=== PATIENT | male | born 1935 | race Caucasian/White ===

== ENCOUNTER 2016-09-01 17:18 | Inpatient (IN) | payer OTHER ==
[2016-09-01] MEDS ORDERED: NS 1,000 ML IV ONE (17:56)
--- NOTE | 2016-09-01 17:58 | EDPHY ---
H & P Stated Complaint: Bloody urine w/ proastate CA HPI/ROS: HPI CHIEF COMPLAINT: Hematuria, painless HISTORY OF PRESENT ILLNESS: This patient very pleasant 81-year-old male significant past medical history for hyperlipidemia, prostate cancer, BPH, GERD , presents to the Emergency Room painless hematuria x2 days. Patient states around noon yesterday he developed blood in his urine did not really have any discomfort back pain or abdominal pain tells me that he had 2 more episodes of a large amount of blood with passage of blood clots. Again painless, does feel urinary urgency, and not a very steady stream. Tells me he has never had this before. Tells me that he used to be followed by a urologist for prostate CA but has not seen 1 in years. Denies a history of AAA, or being on blood thinners. Currently this time he has no complaints. Past Medical History: BPH, prostate CA, hyperlipidemia, GERD Past Surgical History: prostate surgery Social History: denies daily use drugs, alcohol, tobacco products Family History: Noncontributory ROS REVIEW OF SYSTEMS: A comprehensive 10 point review of systems is otherwise negative aside from elements mentioned in the history of present illness. Exam Constitutional triage nursing summary reviewed, vital signs reviewed, awake/ alert. Eyes normal conjunctivae and sclera, EOMI, PERRLA. HENT normal inspection, atraumatic, moist mucus membranes, no epistaxis, neck supple/ no meningismus, no raccoon eyes. Respiratory clear to auscultation bilaterally, normal breath sounds, no respiratory distress, no wheezing. Cardiovascular rate normal, regular rhythm, no murmur, no edema, distal pulses normal. Gastrointestinal soft, non-tender, no rebound, no guarding, normal bowel sounds, no distension, no pulsatile mass. Genitourinary no CVA tenderness. Musculoskeletal no midline vertebral tenderness, full range of motion, no calf swelling, no tenderness of extremities, no meningismus, good pulses, neurovascularly intact. Skin pink, warm, & dry, no rash, skin atraumatic. Neurologic awake, alert and oriented x 3, AAOx3, moves all 4 extremities equally, motor intact, sensory intact, CN II-XII intact, normal cerebellar, normal vision, normal speech. Psychiatric normal mood/affect. Heme/Lymph/Immune no lymphadenopathy. Differential Diagnosis: includes but is not limited to in a particular order, BPH causing painless hematuria, bladder mass, cystitis, UTI, renal mass, ruptured AAA Medical Decision Making: this patient had an IV established obtain blood work, urinalysis, coags, patient had a CT abdomen pelvis with IV contrast to rule out ruptured AAA or AAA, or bladder mass or renal mass. Re-evaluation: CT scan of the Abdomen pelvis with IV contrast The results of the study are shows bladder wall mass 3. 6 cm x 3 x 2 cm The study was read by Dr. Storey. I viewed the images myself on the PACS system. 2011: Spoke with Dr. Guillory with Urology on-call recommends 3 way catheter with irrigation, and admission the hospital for further evaluation of this bladder mass. He will consult. 2015: Spoke with Dr. Guillory with Urology on-call recommends admission [address] Leonardo catheter and he will consult. I have ordered through a Leonardo catheter reviewed the CT scan with the patient he understands remission for gross hematuria. Will be irrigated. He is hemodynamically stable no acute distress resting comfortably agrees with plan. 2139: Patient declined Leonardo catheter we did make 2 attempts however he is refusing another attempt. Tells me has to be consciously sedated to get a catheter placed. I explained that we should probably try 1 more time given he has a bladder possibly full blood however has declined he wants to be admitted upstairs he is urinating himself. Source: Patient - Personal History Current Tetanus/Diphtheria Vaccine: Unsure Current Tetanus Diphtheria and Acellular Pertussis (TDAP): Unsure - Medical/Surgical History Hx Asthma: No Hx Chronic Respiratory Disease: No Hx Diabetes: No Hx Cardiac Disease: No Hx Renal Disease: No Hx Cirrhosis: No Hx Alcoholism: No Hx HIV/AIDS: No Hx Splenectomy or Spleen Trauma: No Other PMH: GERD, prostate CA - Social History Smoking Status: Current some day smoker Constitutional: Initial Vital Signs Temperature (C) 36.7 C 09/01/16 17:20 Heart Rate 69 09/01/16 17:20 Respiratory Rate 16 09/01/16 17:20 Blood Pressure 153/93 H 09/01/16 17:20 O2 Sat (%) 89 L 09/01/16 17:20 O2 Delivery Mode Room Air O2 (L/minute) 2 Allergies/Adverse Reactions: wheat Allergy (Severe, Unverified 09/01/16 20:59) Home Medications: Medication Instructions Recorded Acetaminophen [Tylenol ES 500 mg 1,000 mg PO HS 09/01/16 (*)] Atorvastatin Calcium [Lipitor 40 40 mg PO DAILY 09/01/16 mg (*)] Esomeprazole Mag Trihydrate 40 mg PO DAILY 09/01/16 [Nexium] Medical Decision Making - Data Points Laboratory Results: Laboratory Results 09/01/16 17:48 09/01/16 17:48 09/01/16 09/01/16 17:48 17:27 WBC 9.14 10^3/uL (3.80-9.50) RBC 4.68 10^6/uL (4.40-6.38) Hgb 15.5 g/dL (13.7-17.5) Hct 45.2 % (40.0-51.0) MCV 96.6 fL (81.5-99.8) MCH 33.1 pg (27.9-34.1) MCHC 34.3 g/dL (32.4-36.7) RDW 13.1 % (11.5-15.2) Plt Count 268 10^3/uL (150-400) MPV 9.3 fL (8.7-11.7) Neut % (Auto) 61.7 % (39.3-74.2) Lymph % (Auto) 25.4 % (15.0-45.0) [place] % (Auto) 8.0 % (4.5-13.0) Eos % (Auto) 3.7 % (0.6-7.6) Baso % (Auto) 1.0 % (0.3-1.7) Nucleat RBC Rel Count 0.0 % (0.0-0.2) Absolute Neuts (auto) 5.64 10^3/uL (1.70-6.50) Absolute Lymphs (auto) 2.32 10^3/uL (1.00-3.00) Absolute Monos (auto) 0.73 10^3/uL (0.30-0.80) Absolute Eos (auto) 0.34 10^3/uL (0.03-0.40) Absolute Basos (auto) 0.09 10^3/uL (0.02-0.10) Absolute Nucleated RBC 0.00 10^3/uL (0-0.01) Immature Gran % 0.2 % (0.0-1.1) Immature Gran # 0.02 10^3/uL (0.00-0.10) PT 13.4 SEC (12.0-15.0) INR 1.03 (0.83-1.16) APTT 29.2 SEC (23.0-38.0) Sodium 143 mEq/L (134-144) Potassium 4.2 mEq/L (3.5-5.2) Chloride 102 mEq/L (97-110) Carbon Dioxide 30 mEq/l (22-31) Anion Gap 11 mEq/L (8-16) BUN 13 mg/dL (7-23) Creatinine 0.7 mg/dL (0.7-1.3) Estimated GFR > 60 Glucose 101 H mg/dL (70-100) Calcium 9.3 mg/dL (8.5-10.4) Total Bilirubin 0.5 mg/dL (0.1-1.4) Conjugated Bilirubin 0.3 mg/dL (0.0-0.5) Unconjugated Bilirubin 0.2 mg/dL (0.0-1.1) AST 20 IU/L (17-59) ALT 35 IU/L (21-72) Alkaline Phosphatase 72 IU/L (38-126) Total Protein 6.9 g/dL (6.3-8.2) Albumin 4.0 g/dL (3.5-5.0) Lipase 46.0 IU/L (23-300) Urine Color RED Urine Appearance TURBID Urine pH 6.0 (5.0-7.5) Ur Specific [place] 1.017 (1.002-1.030) Urine Protein 2+ H (NEGATIVE) Urine Ketones TRACE H (NEGATIVE) Urine Blood 3+ H (NEGATIVE) Urine Nitrate NEGATIVE (NEGATIVE) Urine Bilirubin NEGATIVE (NEGATIVE) Urine Urobilinogen NEGATIVE EU (0.2-1.0) Ur Leukocyte Esterase NEGATIVE (NEGATIVE) Urine RBC >182 H /hpf (0-3) Urine WBC 3-5 H /hpf (0-3) Ur Epithelial Cells NONE SEEN /lpf (NONE-1+) Ur Culture Indicated? NOT INDICATED (NI) Urine Glucose 1+ H (NEGATIVE) Medications Given: Discontinued Medications Sodium Chloride (Ns) 1,000 mls @ 0 mls/hr IV ONCE ONE PRN Reason: Wide Open Stop: 09/01/16 17:57 Last Admin: 09/01/16 18:10 Dose: 1,000 mls Departure - Departure Disposition: [facility] Inpatient Acute Clinical Impression: Bladder mass, Hematuria Condition: Fair
[2016-09-01 18:03] LABS: % IMMATURE GRANULYOCYTES 0.2 % (0.0-1.1); ABSOLUTE IMMATURE GRANULOCYTES 0.02 10^3/uL (0.00-0.10); ADD DIFF? NO; ADD MORPH? NO; ADD SCAN? NO; ATYPICAL LYMPHOCYTE FLAG 10 (0-99); FRAGMENT RBC FLAG 0 (0-99); HEMATOCRIT 45.2 % (40.0-51.0); HEMOGLOBIN 15.5 g/dL (13.7-17.5); LEFT SHIFT FLG 0 (0-99); LIPEMIA HEMOLYSIS FLAG 90 (0-99); MEAN CELL HEMOGLOBIN 33.1 pg (27.9-34.1); MEAN CELL HEMOGLOBIN CONCENTR. 34.3 g/dL (32.4-36.7); MEAN CELL VOLUME 96.6 fL (81.5-99.8); MEAN PLATELET VOLUME 9.3 fL (8.7-11.7); PLATELET CLUMPS FLAG 0 (0-99); PLATELET COUNT 268 10^3/uL (150-400); RED BLOOD CELL COUNT 4.68 10^6/uL (4.40-6.38); RED CELL DISTRIBUTION WIDTH 13.1 % (11.5-15.2)
[2016-09-01 18:10] LABS: APTT 29.2 SEC (23.0-38.0); INR 1.03 (0.83-1.16); PROTIME(PATIENT) 13.4 SEC (12.0-15.0)
[2016-09-01 18:10] LABS: COLOR RED; LEUKOCYTE ESTERASE,URINE NEGATIVE (NEGATIVE); NITRITE,URINE NEGATIVE (NEGATIVE)
[2016-09-01] MEDS ORDERED: IOPAMIDOL (ISOVUE-300) 100 ML BTL IV ONE (18:16)
[2016-09-01 18:18] LABS: ALANINE AMINOTRANSFERASE 35 IU/L (21-72); ALKALINE PHOSPHATASE 72 IU/L (38-126); ANION GAP 11 mEq/L (8-16); ASPARTATE AMINOTRANSFERASE 20 IU/L (17-59); BILIRUBIN,TOTAL 0.5 mg/dL (0.1-1.4); BILIRUBIN-CONJUGATED 0.3 mg/dL (0.0-0.5); BILIRUBIN-UNCONJUGATED 0.2 mg/dL (0.0-1.1); CALCIUM 9.3 mg/dL (8.5-10.4); CARBON DIOXIDE 30 mEq/l (22-31); CHLORIDE 102 mEq/L (97-110); CREATININE 0.7 mg/dL (0.7-1.3); GLOMERULAR FILTRATION RATE > 60; GLUCOSE 101 mg/dL (70-100); POTASSIUM 4.2 mEq/L (3.5-5.2); SODIUM 143 mEq/L (134-144); TOTAL PROTEIN 6.9 g/dL (6.3-8.2)
[2016-09-01 18:18] LABS: RBC,URINE >182 /hpf (0-3)
--- NOTE | 2016-09-01 19:47 | CT ---
CT Scan of the Abdomen and Pelvis (With Contrast) 1905 hours History: Painless hematuria. Technique: Axial computed tomographic images of the abdomen and pelvis were obtained with the unevent ful intravenous administration of 90 mL Isovue-300 contrast. Images were reviewed in multiple planes. Dose reduction techniques were utilized. CT Abdomen and Pelvis Findings: Lung bases: Within the left lateral costophrenic angle there is a 5 mm noncalcified pulmonary nodule. This was described on prior remote CT chest study from May,. There is also some scarring at the right lung base posterior laterally with some traction bronchiectasis noted.. Liver: Normal. Spleen: Normal. Gallbladder and Bile Ducts: Normal. Pancreas: Normal. Adrenals: Normal. Kidneys: No obstruction or solid masses. There is a nonobstructive calculus mid left kidney measuring 4 x 3 mm. No additional nephrolithiasis is seen. There is some areas of thinning of the renal cortex left kidney related to previous scarring. Abdominal Aorta: No aneurysm. Pelvic structures: Normal Bladder: There is an enhancing mass suspected along the left side of the bladder wall measuring abou t 3.6 x 2.1 x 2.2 cm.. Increased density is also seen in the dependent aspect of the bladder the coul d represent blood products. There are scattered diverticula along the bladder wall as well. Appendix: Normal. Bowel Loops: There is extensive uncomplicated diverticula associated with the sigmoid colon without diverticulitis. There is a mild to moderate amount of retained stool within the transverse colon to s plenic flexure. No significantly dilated loops of bowel are appreciated. Small bowel loops are normal in caliber. No bowel obstruction, ascites, or significant retroperitoneal lymphadenopathy. Skeletal system: Vertebral body heights are well-maintained. There are no significant lytic or scler otic osseous lesions. Impression: 1. 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 2. 5 mm noncalcified pulmonary nodule left lung base laterally. This was described on prior remote CT study. 3. Scarring once again noted at the right lung base. 4. Nonobstructive calculus mid left kidney measuring 4 x 3 mm. 5. Focal thinning of the left renal cortex related to previous scarring possibly from infection. 6. Extensive uncomplicated diverticula of the sigmoid colon without diverticulitis. These findings were discussed by telephone with Dr. Hitesh Parra at 1943 hrs.
[2016-09-01] MEDS ORDERED: LIDOCAINE 2% JELLY 20 ML (UROJECT) UR ONE (20:26)
[2016-09-01] MEDS ORDERED: ONDANSETRON 4 MG/2 ML VIAL IVP PRN (22:09)
[2016-09-01] MEDS ORDERED: ONDANSETRON DISINTEGRATING 4 MG TAB PO PRN (22:09)
--- NOTE | 2016-09-01 22:40 | GHP ---
[f rep st] HISTORY AND PHYSICAL DATE OF ADMISSION: 09/01/2016 CHIEF COMPLAINT: Hematuria. HISTORY OF PRESENT ILLNESS: The patient is an 81 year old with a history significant for prostate ca ncer treated with radiation therapy. He also has some benign prostatic hypertrophy and is followed b alok Guillory. He comes in after noting blood in his urine yesterday morning. It had improved by n oon, and it started again this morning. Because hematuria persisted, his told him to come into the emergency room. He did not have any significant pain. He has had some difficulty urinating, noting some clots initia lly; however, this evening it has cleared up a little bit. He has never noted previous blood in his urine. He feels like he is emptying his bladder and does not have any pain. No fevers or chills, no chest pain, coughing, shortness of breath. No nausea, vomiting. No other symptoms. REVIEW OF SYSTEMS: A 10-point review of systems was done and is negative except as stated in the HPI . PAST MEDICAL HISTORY: 1. Dyslipidemia. 2. GE reflux disease. 3. Prostate cancer treated with radiation therapy. PAST SURGICAL HISTORY: Treating empyema, sinus surgery, tonsillectomy. SOCIAL HISTORY: He is . He is healthy and active and goes to the gym frequently. He smokes a pipe and drinks wine or a cocktail, maximum 2 per day. FAMILY HISTORY: Father from stomach cancer. Mother of a stroke. MEDICATIONS: Tylenol as needed, Lipitor 40 mg daily, and Nexium 40 mg daily. ALLERGIES: Wheat. CODE STATUS: I did discuss this in detail with him and wishes to be a do not resuscitate. PHYSICAL EXAM: VITAL SIGNS: He is afebrile, heart rate 69, blood pressure 153/93, respirations 16. He is 89% on room air, 96% on 2 L. GENERAL: He is a very pleasant 81 year old. He is alert and or iented. His speech is clear and fluent. HEENT: Pupils equal, round, and reactive. Extraocular mov ements intact. Mucous membranes moist. Oropharynx clear. NECK: Supple. No adenopathy. HEART: R egular rate and rhythm. No murmur, gallop, or rub. LUNGS: Clear to auscultation. ABDOMEN: Soft, nontender. No obvious masses. Positive bowel sounds. EXTREMITIES: No clubbing, cyanosis, or edema . MUSCULOSKELETAL: No joint deformities or effusions. NEUROLOGICAL: He appears intact. SKIN: No rash. LABORATORY DATA: CBC is within normal limits. Chemistry is normal with normal renal function. LFTs are normal. Coags are normal. Urinalysis shows greater than 182 RBCs. DIAGNOSTICS: Abdominal CT scan with contrast: Left bladder wall mass suspicious for transitional-ce ll carcinoma, 5 mm noncalcified pulmonary nodule, left lung base, described on prior remote CT scan. Scarring at the right lung base. Nonobstructive calculi of the mid left kidney, 4 x 3 cm. Extensiv e uncomplicated diverticula without diverticulitis. ASSESSMENT AND PLAN: 1. 81 year old presents with acute hematuria. No other significant symptoms and an abnormal CT scan with a mass noted in his bladder. This could certainly be secondary to transitional cell carcinoma but cannot rule out a hematoma or clot either. Plan: Admit to the hospital for further evaluation a nd treatment. Attempted to place a 3-way catheter; however, due to BPH was unable to pass this, and currently the patient refuses any further Leonardo placement unless it is done by Urology and with consc ious sedation. Case discussed with Dr. Guillory who will see him in consultation in the morning. In the meantime, will admit him to the hospital. Gently hydrate him. Make him n.p.o. after midnight f or potential cystoscopy. Will hold off any aspirin or other blood thinners. 2. Dyslipidemia. Continue Lipitor when he is able to the eat. 3. Gastroesophageal reflux disease. Continue Nexium when he is able to eat. 4. History of prostate cancer, status post radiation therapy. Dr. Patricia Guillory is his urologist at the outpatient as well. 5. DVT prophylaxis. Place SCDs and avoid chemical prophylaxis given his hematuria. /[id number]/MODL
[2016-09-01] MEDS: ACETAMINOPHEN 325 MG TAB PO PRN (22:58)
[2016-09-01] MEDS: NS 1,000 ML IV SCH (23:00)
[2016-09-02] MEDS: ACETAMINOPHEN 325 MG TAB PO PRN ×3 (02:28→14:13)
[2016-09-02 05:31] LABS: % IMMATURE GRANULYOCYTES 0.2 % (0.0-1.1); ABSOLUTE IMMATURE GRANULOCYTES 0.02 10^3/uL (0.00-0.10); ADD DIFF? NO; ADD MORPH? NO; ADD SCAN? NO; ATYPICAL LYMPHOCYTE FLAG 10 (0-99); FRAGMENT RBC FLAG 0 (0-99); HEMATOCRIT 42.8 % (40.0-51.0); HEMOGLOBIN 14.6 g/dL (13.7-17.5); LEFT SHIFT FLG 0 (0-99); LIPEMIA HEMOLYSIS FLAG 90 (0-99); MEAN CELL HEMOGLOBIN CONCENTR. 34.1 g/dL (32.4-36.7); MEAN CELL VOLUME 96.8 fL (81.5-99.8); MEAN PLATELET VOLUME 9.8 fL (8.7-11.7); PLATELET CLUMPS FLAG 0 (0-99); PLATELET COUNT 287 10^3/uL (150-400); RED BLOOD CELL COUNT 4.42 10^6/uL (4.40-6.38)
[2016-09-02 06:00] LABS: ANION GAP 8 mEq/L (8-16); CALCIUM 8.8 mg/dL (8.5-10.4); CARBON DIOXIDE 30 mEq/l (22-31); CHLORIDE 106 mEq/L (97-110); CREATININE 0.7 mg/dL (0.7-1.3); GLOMERULAR FILTRATION RATE > 60; GLUCOSE 92 mg/dL (70-100); POTASSIUM 4.5 mEq/L (3.5-5.2); SODIUM 144 mEq/L (134-144)
--- NOTE | 2016-09-02 11:02 | HOSPPROG ---
Hospitalist Progress Note Assessment/Plan: Patient is an 81-year-old gentleman who presented to the emergency room with hematuria. He has a history significant for prostate cancer being treated with radiation therapy. He also has some BPH and is followed by Dr. Guillory. He has not had any significant pain. A CT of the abdomen with contrast showed a left bladder wall mass suspicious for transitional cell carcinoma, 5 mm noncalcified pulmonary nodule, left lung base. He has scarring at the right lung base,nonobstructive calculi of the mid left kidney, 4 x 3 cm. He has extensive uncomplicated diverticula without diverticulitis. Today is my 1st encounter with the patient. Chart reviewed. #. Acute hematuria - Will wait for Urology to further decide - could be secondary to transitional cell carcinoma, but could be a clot or a hematoma - will likely need a cystoscopy to further evaluate to differentiate the the exact etiology #. left bladder wall mass - suspicious for transitional cell carcinoma - patient has been having left lower quadrant pain - will wait further evaluation from the urologist #. pulmonary nodule - this was also noted on the CT scan in 2004 #. dyslipidemia - statin therapy #. GERD - on Nexium #. history of prostate cancer /status post radiation therapy - followed by Dr. Guillory #. plan. : To Urology to see what time they will be evaluating Mr. Ashby. will continue NPO for now. Subjective: patient is anxious to eat. Has some left lower quadrant pain but otherwise is feeling well. Objective: Vital Signs Temp Pulse Resp BP Pulse Ox 36.4 C 57 L 18 127/75 H 90 L 09/02/16 07:46 09/02/16 07:46 09/02/16 07:46 09/02/16 07:46 09/02/16 07:46 Laboratory Results 09/02/16 04:22 09/02/16 05:15 09/01/16 09/02/16 09/03/16 05:59 05:59 05:59 Intake Total 1000 Balance 1000 PT 13.4 SEC (12.0-15.0) 09/01/16 17:48 INR 1.03 (0.83-1.16) 09/01/16 17:48 - Physical Exam Constitutional: no apparent distress, appears nourished Eyes: PERRL, EOMI Ears, Nose, Mouth, Throat: hearing normal, other ( patient has dry chapped lips) Cardiovascular: regular rate and rhythym, no murmur, rub, or gallop Respiratory: no respiratory distress Gastrointestinal: normoactive bowel sounds, tenderness (left lower quadrant with palpation), No guarding, No rebound Skin: warm Musculoskeletal: no muscle tenderness Neurologic: AAOx3 Psychiatric: interacting appropriately, not anxious ICD10 Worksheet Patient Problems: Problems Problem Status Diagnosed Bladder mass Acute Hematuria Acute
[2016-09-02] MEDS: ATORVASTATIN CALCIUM 40 MG TAB PO SCH (11:53)
[2016-09-02] MEDS: PANTOPRAZOLE SODIUM 40 MG TAB PO SCH (11:53)
[2016-09-02] MEDS: NS 1,000 ML IV SCH (12:26)
--- NOTE | 2016-09-02 14:36 | GCON ---
[f rep st] CONSULTATION DATE OF CONSULTATION: 09/02/2016 REASON FOR CONSULT: Difficulty urinating and gross hematuria. HISTORY OF PRESENT ILLNESS: This is a pleasant 81-year-old male, known to Dr. Guillory of our group, who presented for painless blood in the urine. He does have a past history significant for prostate cancer treated with radiation. Upon admission to the emergency room, it was also determined that annie lebron was having difficulty emptying his bladder along with the hematuria, but was able to void an a dequate amount and was denying bladder pain, fever or chills. PAST MEDICAL HISTORY: Includes BPH, prostate cancer, hyperlipidemia, GERD. PAST SURGICAL HISTORY: Prostate surgery, radiation. SOCIAL: Denies use of drugs, alcohol, tobacco. FAMILY HISTORY: Noncontributory. REVIEW OF SYSTEMS: 12-point review of systems negative except as mentioned in HPI. PHYSICAL EXAM: VITAL SIGNS: Blood pressure 157/84, heart rate 63, respirations 18, O2 90 L on room air. Temperature 36.5. GENERAL: This is a well-developed, well-nourished male in no acu te distress. HEENT: Normocephalic, atraumatic. Extraocular movements intact. NECK: Supple. No l ymphadenopathy. Trachea midline. RESPIRATORY: No accessory respiratory muscle use. CARDIAC: Regu lar rate and rhythm. No obvious JVD. GI: Abdomen soft, nondistended. No hepatosplenomegaly. No C VA tenderness. : No bladder distention. No bladder tenderness to exam. Phallus normal with appr opriate urethral meatal opening. INTEGUMENT: No obvious rashes or lesions. MUSCULOSKELETAL: Patie nt was examined while in bed but able to move all 4 extremities without difficulty. NEURO: Patient is alert and oriented. Affect appropriate for situation. LAB: White blood cell count 8.58, hemoglobin 14.6, hematocrit 42.8, platelets 287. Coags: PT 13.4, INR 1.03. Chemistry: Sodium 144, potassium 4.5, chloride 106, carbon dioxide 30, anion gap 8. BUN 13, creatinine 0.7. Glucose 92, calcium 8.8. PSA has been drawn and pending. Urinalysis was positi ve for 3+ blood. No nitrites. Culture not sent. I did personally review the abdomen and pelvis CT that was done with contrast, which showed nonobstructive calculus in the left kidney 4 x 3 mm, concer ash enhancing mass along the left side of the bladder measuring 3.6 x 2.1 x 2.2 cm, along with incre asing density areas in the dependent portion of the bladder of uncertain etiology. ASSESSMENT AND PLAN: Hematuria, bladder mass. After discussion with the patient of his options, it was recommended that patient have a transurethral resection of possible bladder tumor along with cyst oscopy in the operating room for evaluation of possible bladder masses and for source of hematuria. The patient agrees to procedure. Consent was reviewed and signed, and ample time given to answer all questions. /[id number]/MODL
[2016-09-02] MEDS ORDERED: PROPOFOL/EMULSION 500 MG/50 ML BOTTLE IV ONE (17:22)
[2016-09-02] MEDS ORDERED: fentaNYL 100 MCG/2 ML INJ ONE ×3 (17:22→19:21)
[2016-09-02] MEDS ORDERED: CEFAZOLIN 2 GM/DEXTROSE/100 ML BAG IV ONE (17:54)
[2016-09-02] MEDS ORDERED: epHEDrine SULFATE 10 MG/ML SYR ONE (18:26)
[2016-09-02] MEDS ORDERED: LIDOCAINE 2% 5 ML SDV ONE (18:26)
[2016-09-02] MEDS ORDERED: ceFAZolin 2 GM/DEXTROSE 100 ML IV ONE (18:30)
--- NOTE | 2016-09-02 19:01 | POSTOPPROG ---
Post Op Note Date of Operation: 09/02/16 Surgeon: Ash Guillory Pre-op Diagnosis: bladder tumor Post-op Diagnosis: same Procedure: TURBT Findings: [id number] Inf/Abcess present in the surg proc area at time of surgery?: No EBL: Minimal
--- NOTE | 2016-09-02 19:48 | GOP ---
[f rep st] OPERATIVE REPORT DATE OF OPERATION: 09/02/2016 SURGEON: Min Guillory MD ANESTHESIA: General. PREOPERATIVE DIAGNOSIS: 1. Gross hematuria. 2. Bladder mass. 3. History of urethral stricture disease. POSTOPERATIVE DIAGNOSIS: 1. Gross hematuria. 2. Bladder mass. 3. History of urethral stricture disease. PROCEDURE PERFORMED: Cystoscopy, transurethral resection of large bladder tumor. FINDINGS: ESTIMATED BLOOD LOSS: Minimal. DESCRIPTION OF PROCEDURE: Patient was taken to the operating room. General anesthesia was induced. The patient was placed in the dorsal lithotomy position, prepped and draped in sterile fashion. The 22-Setswana cystoscope with a 30-degree lens was inserted through the patient's urethra into the patient's bladder. There was only a mild bulbar urethral stri cture. There was no significant radiation induced stenosis. The bladder had the appearance of murky old blood. This was drained. There was no specific clot. Visual inspection was carried out. The bladder had heavy trabeculation with multiple diverticula. There was an irregular mass that was not papillary at the right dome of the bladder near the bladder neck. This was examined carefully and re sected partially. It had the appearance of aggressive bladder cancer versus other. It did not appea r to be a papillary minimally invasive type of tumor. It was not thought that I could safely resect until there was because I was concerned that I would never find that. So, after a thoroug h sampling of the tumor and thorough fulguration, all chips were evacuated and a 20-Setswana 3-way Fole y catheter was inserted. Effluent was clear. The patient was returned to the supine position, and a t the time of this dictation, was being extubated. COMPLICATIONS: None. DRAINS: 20-Setswana 3-way Leonardo catheter. /[id number]/MODL
[2016-09-02] MEDS ORDERED: KETOROLAC 15 MG/1 ML SDV IVP ONE (20:42)
[2016-09-02] MEDS ORDERED: ACETAMINOPHEN 500 MG TAB PO SCH (21:00)
[2016-09-03] MEDS: NS 1,000 ML IV SCH (03:58)
[2016-09-03 05:50] LABS: % IMMATURE GRANULYOCYTES 0.3 % (0.0-1.1); ABSOLUTE IMMATURE GRANULOCYTES 0.03 10^3/uL (0.00-0.10); ADD DIFF? NO; ADD MORPH? NO; ADD SCAN? NO; ATYPICAL LYMPHOCYTE FLAG 0 (0-99); FRAGMENT RBC FLAG 0 (0-99); HEMATOCRIT 42.9 % (40.0-51.0); LEFT SHIFT FLG 10 (0-99); LIPEMIA HEMOLYSIS FLAG 80 (0-99); MEAN CELL HEMOGLOBIN 32.4 pg (27.9-34.1); MEAN CELL HEMOGLOBIN CONCENTR. 32.6 g/dL (32.4-36.7); MEAN CELL VOLUME 99.3 fL (81.5-99.8); MEAN PLATELET VOLUME 9.9 fL (8.7-11.7); PLATELET CLUMPS FLAG 0 (0-99); PLATELET COUNT 247 10^3/uL (150-400); RED BLOOD CELL COUNT 4.32 10^6/uL (4.40-6.38); RED CELL DISTRIBUTION WIDTH 12.9 % (11.5-15.2)
[2016-09-03 06:04] LABS: ANION GAP 9 mEq/L (8-16); CALCIUM 8.3 mg/dL (8.5-10.4); CARBON DIOXIDE 29 mEq/l (22-31); CHLORIDE 105 mEq/L (97-110); CREATININE 0.6 mg/dL (0.7-1.3); GLOMERULAR FILTRATION RATE > 60; GLUCOSE 88 mg/dL (70-100); POTASSIUM 4.4 mEq/L (3.5-5.2); SODIUM 143 mEq/L (134-144)
[2016-09-03 08:14] VITALS: TEMP 98.7
[2016-09-03] MEDS: PANTOPRAZOLE SODIUM 40 MG TAB PO SCH (08:43)
[2016-09-03] MEDS: ATORVASTATIN CALCIUM 40 MG TAB PO SCH (08:43)
--- NOTE | 2016-09-03 08:56 | HOSPPROG ---
Hospitalist Progress Note Assessment/Plan: Patient is an 81-year-old gentleman who presented to the emergency room with hematuria. He has a history significant for prostate cancer being treated with radiation therapy. He also has some BPH and is followed by Dr. Guillory. He has not had any significant pain. A CT of the abdomen with contrast showed a left bladder wall mass suspicious for transitional cell carcinoma, 5 mm noncalcified pulmonary nodule, left lung base. He has scarring at the right lung base,nonobstructive calculi of the mid left kidney, 4 x 3 cm. He has extensive uncomplicated diverticula without diverticulitis. #. Acute hematuria -secondary to the bladder mass -has 3 way tomlinson in with clear urine output #. left bladder wall mass/ Status post TURP - suspicious for transitional cell carcinoma #. pulmonary nodule - this was also noted on the CT scan in 2004 #. dyslipidemia - statin therapy #. hypoxemia -will get chest xray -O2 sats on room air are 74% #. GERD - on Nexium #. history of prostate cancer /status post radiation therapy - followed by Dr. Guillory #. plan. : call into urology to discuss plan of care/ will get a chest xray for further evaluation Subjective: Ash has no complaints/ anxious to go home. Objective: Vital Signs Temp Pulse Resp BP Pulse Ox 37.1 C 58 L 16 117/66 95 09/03/16 08:00 09/03/16 08:00 09/03/16 08:00 09/03/16 08:00 09/03/16 08:00 Laboratory Results 09/03/16 04:26 09/03/16 04:26 09/02/16 09/03/16 09/04/16 05:59 05:59 05:59 Intake Total 1000 2365 Output Total 3210 Balance 1000 -845 PT 13.4 SEC (12.0-15.0) 09/01/16 17:48 INR 1.03 (0.83-1.16) 09/01/16 17:48 - Physical Exam Constitutional: no apparent distress, appears nourished, not in pain Eyes: PERRL Ears, Nose, Mouth, Throat: hearing normal Cardiovascular: regular rate and rhythym Respiratory: no respiratory distress, rhonchi (scattered at bases) Gastrointestinal: normoactive bowel sounds Genitourinary: tomlinson in urethra (clear urine draining) Skin: warm, normal color Musculoskeletal: no muscle tenderness Neurologic: AAOx3 Psychiatric: interacting appropriately, not anxious ICD10 Worksheet Patient Problems: Problems Problem Status Diagnosed Bladder mass Acute Hematuria Acute
[2016-09-03] MEDS ORDERED: ACETAMINOPHEN 500 MG TAB PO PRN (11:06)
[2016-09-03 12:22] LABS: FREE PSA <0.1 ng/mL (()); PSA RATIO F/T See Comments ratio (()); TOTAL PSA 0.31 ng/mL (<=7.2)
[2016-09-03 12:37] VITALS: BP 112/67; PULSE 66; RESP 18; O2SAT 2
--- NOTE | 2016-09-03 13:13 | DX ---
Portable chest x-ray 1126 hours. History: Increased oxygen requirements. Findings: Comparison to May 29, 2005. The patient is rotated toward the right. There are some fibrotic streaks at the lung bases. Mild blun ting of the right costophrenic angle laterally is probably from underlying scarring. Pulmonary vascul ature is mildly prominent centrally. Prominent perihilar interstitial markings are noted along with s ome peribronchial cuffing. There is no consolidation or significant effusion. Old healed fracture is seen posterior lateral right 6th rib. Impression: 1. Increased scarring at the lung bases. 2. Mild prominent perihilar interstitial markings along with some peribronchial cuffing. Findings are nonspecific but can be seen with bronchitis or viral process versus possibility of mild fluid overlo ad.
--- NOTE | 2016-09-03 15:40 | GDS ---
[f rep st] DISCHARGE SUMMARY DISCHARGE DIAGNOSES: 1. Acute hematuria. 2. Left bladder wall mass, status post transurethral resection of the prostate , suspicious for transitional cell carcinoma. 3. Pulmonary nodule. 4. Dyslipidemia. 5. Hypoxemia. 6. Gastroesophageal reflux disease. 7. History of prostate cancer, status post radiation therapy. CONSULTATIONS DURING HIS STAY: Asia Bradley, physician chiropractic assistant with urology services. BRIEF HISTORY: Mr. Ashby is an 81-year-old male with a history significant for prostate cancer, treated with radiation therapy. He has underlying BPH and is followed by Dr. Guillory. He came in because he noted that he had persistent hematuria. In the ER, a CT scan with contrast was performed that showed a left bladder wall mass suspicious for transitional cell carcinoma, as well as a 5 mm noncalcified pulmonary nodule of the left lung base. This was also noted on a remote CT scan. He has scarring at the right lung base. He has nonobstructive calculi at the mid left kidney 4 x 3 cm. Extensive uncomplicated diverticula without diverticulitis. He was admitted for further care. HOSPITAL COURSE PER PROBLEM: 1. Acute hematuria: This is secondary to the bladder mass. He had a 3-way Tomlinson catheter in for irrigation. His urine output has been clear with this being discontinued. 2. Left bladder wall mass: He was seen and evaluated by Dr. Patricia Guillory on 09/02/2016. He had a cystoscopy and a TURP of a large bladder tumor. It was noted that he had a mild bulbar urethral stricture. There was no significant radiation-induced stenosis. The bladder had appearance of old blood , which was drained. There was an irregular mass at the right dome of the bladder near the bladder neck and this was partially resected. The patient will further follow up with Dr. Guillory for treatment options. For now, the tomlinson catheter will be left in. 3. Pulmonary nodule: This was noted on a previous CT scan in 2004. Recommend he get further evaluation. 4. Dyslipidemia: Statin therapy. 5. Hypoxemia: A chest x-ray was performed, which showed nothing acute. His oxygen levels are ranging from 90-93% this afternoon. Suspect he has some atelectasis and wasn't taking deep breaths. 6. GERD: On Nexium. 7. History of prostate cancer, status post radiation therapy: Further follow up with Dr. Guillory. PENDING LABS: The surgical specimen is pending. CONDITION AT DISCHARGE: Stable. Blood pressure is 112/67, heart rate is 66, respiratory rate is 18, O2 sat on room air 91%, temperature 37.1 Celsius. MEDICATIONS AT DISCHARGE: Please see the EMR. DISCHARGE INSTRUCTIONS: 1. He will be instructed on how to empty his Tomlinson catheter. 2. If he has decreased output or it becomes bloody, to seek medical help immediately. 3. If he develops fever, chills, chest pain, or shortness of breath, return to the emergency room. Greater than 30 minutes discharging and coordinating care. /[id number]/MODL MTDD
--- NOTE | 2016-09-08 08:28 | PQFORM ---
PHYSICIAN QUERY FORM Needs Your Response This query form is being sent to you to assure this patient record is coded properly. Please respond to the question below: SEPTIC TANK INSTALLER QUESTION: In the impression on the Pathology report, bladder cancer is documented/ confirmed; however only 'bladder mass suspicious for bladder ca' is documented as a final diagnosis on the Discharge Summary. Do you agree with the pathology report specifying the 'bladder mass' as a ' bladder cancer' ? Please document your response in the health record or below. __x_ Yes ___ No ___ Other (please document ) ___ Clinically Undetermined Thank You Nalini KOEHLER Telephonic Nurse INSTRUCTIONS FOR RESPONSE: Answer question by clicking on the "Edit Document" button. Move cursor to area below the stars. When complete, hit "Save." Click on the "Sign" button, then click "Sign" again. Type in your PIN and hit "Enter." MTDD
== END 2016-09-03 15:49 | disposition home or self-care (01) | DRG 670 ==
LOC: F3E 22:18
PROVIDERS: ADMIT Internal Medicine; ATTEND Internal Medicine
PROC: 0TBB8ZX Excision of Bladder, Via Natural or Artificial Opening Endoscopic, Diagnostic (ICD-10-PCS; principal; 2016-09-02 17:30)
DX: C67.1 Malignant neoplasm of dome of bladder (principal); R91.1 Solitary pulmonary nodule; R09.02 Hypoxemia; N20.0 Calculus of kidney; K21.9 Gastro-esophageal reflux disease without esophagitis; K57.90 Diverticulosis of intestine, part unspecified, without perforation or abscess without bleeding; Z85.46 Personal history of malignant neoplasm of prostate; Z92.3 Personal history of irradiation
CPT/HCPCS: 84154-90; 97165-GO; G8987-GO-CI; G8988-GO-CI; G8989-GO-CI; J0690; J1885; J2405; J2704; J3010; Q9967

== ENCOUNTER 2016-12-15 11:57 | Emergency (ER) | payer OTHER ==
[2016-12-15 12:07] VITALS: RESP 16; TEMP 97.5
--- NOTE | 2016-12-15 13:26 | EDPHY ---
H & P Time Seen by Provider: 12/15/16 12:39 HPI/ROS: CHIEF COMPLAINT: "Bladder spasms" HISTORY OF PRESENT ILLNESS: Patient is an 81-year-old male with prostate and bladder cancer on radiation therapy who presents emergency department with bladder spasms. Patient states he has intermittent episodes of severe sharp bladder pain. This lasts at seconds at a time. It is suprapubic. It does not radiate. Patient's called the radiation oncologist Dr. Moris Gotti who told him to come to the emergency department for further evaluation. The patient states he does not feel he needs to be here. He states he still able to urinate. He has no flank pain. No fevers or chills. No nausea or vomiting. REVIEW OF SYSTEMS: My complete review of systems is negative except as mentioned in the HPI. Past Medical/Surgical History: Includes GERD, prostate cancer, bladder cancer, empyema Recently had a radiation therapy. Smoking Status: Current some day smoker Physical Exam: Vitals noted. Afebrile GENERAL: Well-appearing, in no acute distress, alert. HEENT: Eyes normal to inspection, normal pharynx, no signs of dehydration. NECK: No thyromegaly, no lymphadenopathy, supple. RESPIRATORY: Clear to auscultation bilaterally, no rales, rhonchi or wheezing. CVS: Regular rate and rhythm, no rubs, murmurs, or gallops. ABDOMEN: Soft, nontender, nondistended, no organomegaly. Benign BACK: Normal to inspection, no CVA tenderness. SKIN: Normal color, no rash, warm, dry. No pallor. EXTREMITIES: No pedal edema,no joint swelling. NEURO/PSYCH: [Alert and oriented x3, normal mood and affect Constitutional: Initial Vital Signs Temperature (C) 36.4 C 12/15/16 12:04 Heart Rate 65 12/15/16 12:04 Respiratory Rate 16 12/15/16 12:04 Blood Pressure 131/80 H 12/15/16 12:04 O2 Delivery Mode Room Air Allergies/Adverse Reactions: wheat Allergy (Severe, Verified 09/01/16 23:43) Home Medications: Medication Instructions Recorded Acetaminophen [Tylenol ES 500 mg 1,000 mg PO HS 09/01/16 (*)] Atorvastatin Calcium [Lipitor 40 40 mg PO DAILY 09/01/16 mg (*)] Esomeprazole Mag Trihydrate 40 mg PO DAILY 09/01/16 [Nexium] Cephalexin [Keflex (*)] 500 mg PO QID 7 Days 12/15/16 Phenazopyridine HCl [Pyridium] 100 mg PO TID #6 tab 12/15/16 Medical Decision Making ED Course/Re-evaluation: In the emergency department I discussed the plan with the patient. I answered all his questions. Patient wanted minimal intervention. He states he does not want a Leonardo catheter or other invasive interventions. Patient states on numerous occasions he would prefer to be discharged home with a new pain medication. I performed a bedside ultrasound to determine if he had significant urinary retention. There was marked urinary retention. The patient urinated and a repeat ultrasound was performed. He still has significant urine volume. Discussed this with the patient and recommended Leonardo catheter. I felt that his urine retention may be causing his discomfort. The patient does not want a Leonardo. He understood this fully. Patient's UA showed signs of urinary tract infection. He was given Keflex as well as Pyridium for his discomfort. Patient will follow up with his radiation oncologist as well as his oncologist. Patient was given warnings prior to leaving. He felt comfortable with the plan. He does not want any further intervention. Differential Diagnosis: Patient presents emergency department with intermittent sharp suprapubic pain. He has no discomfort while in the emergency department. His abdominal exam is benign. He does have urinary retention but refuses a catheter. The patient has had recent radiation therapy. Radiation oncologist recommended [address] imaging. I do not feel the patient needs CT imaging today. The patient felt comfortable with this plan. He does not appear septic or toxic. I do not feel he has a acute urinary or intestinal obstruction. - Data Points Laboratory Results: 12/15/16 13:10 Urine Color YELLOW Urine Appearance HAZY Urine pH 7.0 (5.0-7.5) Ur Specific [place] 1.004 (1.002-1.030) Urine Protein NEGATIVE (NEGATIVE) Urine Ketones NEGATIVE (NEGATIVE) Urine Blood NEGATIVE (NEGATIVE) Urine Nitrate NEGATIVE (NEGATIVE) Urine Bilirubin NEGATIVE (NEGATIVE) Urine Urobilinogen NEGATIVE EU EU (0.2-1.0) Ur Leukocyte Esterase 3+ H (NEGATIVE) Urine RBC 3-5 /hpf H /hpf (0-3) Urine WBC 50-182 /hpf H /hpf (0-3) Ur Epithelial Cells NONE SEEN /lpf /lpf (NONE-1+) Urine Bacteria TRACE /hpf H /hpf (NONE SEEN) Ur Culture Indicated? INDICATED H (NI) Urine Glucose NEGATIVE (NEGATIVE) Departure - Departure Disposition: Home, Routine, Self-Care Clinical Impression: Urinary tract infection Qualifiers: Urinary tract infection type: acute cystitis Hematuria presence: with hematuria Qualified Code(s): N30.01 - Acute cystitis with hematuria Abdominal pain Qualifiers: Abdominal location: unspecified location Qualified Code(s): R10.9 - Unspecified abdominal pain Condition: Good Instructions: Abdominal Pain (ED), Urinary Tract Infection in Men (ED) Additional Instructions: You have a urinary tract infection. You need to take her entire course of antibiotics. I also prescribed Pyridium which would may help with bladder spasms. Referrals: PORSCHE PRICE [Primary Care Provider] - 5-7 days, call for appt. Prescriptions: Cephalexin [Keflex (*)] 500 mg PO QID 7 Days Phenazopyridine HCl [Pyridium] 100 mg PO TID #6 tab
[2016-12-15 13:40] LABS: COLOR YELLOW; LEUKOCYTE ESTERASE,URINE 3+ (NEGATIVE); NITRITE,URINE NEGATIVE (NEGATIVE)
[2016-12-15 13:47] LABS: BACTERIA TRACE /hpf (NONE SEEN); WBC,URINE 50-182 /hpf (0-3)
[2016-12-15] MEDS ORDERED: CEPHALEXIN 500 MG CAP PO ONE (13:58)
[2016-12-15 14:13] VITALS: BP 139/81; PULSE 64; O2SAT 93
== END 2016-12-15 14:12 | disposition home or self-care (01) ==
DX: N30.01 Acute cystitis with hematuria (principal); B95.8 Unspecified staphylococcus as the cause of diseases classified elsewhere; F17.200 Nicotine dependence, unspecified, uncomplicated; Z85.51 Personal history of malignant neoplasm of bladder

== ENCOUNTER 2016-12-25 08:46 | Observation (INO) | payer OTHER ==
--- NOTE | 2016-12-25 07:26 | GHP ---
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 His last surveillance cystoscopy was on 09/02/2016 which demonstrated the bladder tumor an d he had elected to have no intervention or treatment because of his age. So he most recently had d eveloped lower urinary tract symptoms and hematuria, and at the present time, he is admitted for a c ystoscopy under general anesthesia and resection of tumor to see if we can control bleeding and he i s admitted for that procedure. Indications, complications and risks discussed with him. PAST MEDICAL HISTORY: Gastric reflux, prostate cancer and bladder cancer. SURGICAL HISTORY: TURBT and radiation therapy for his prostate cancer. MEDICATIONS: Have been atorvastatin, fluticasone, Nexium, Prevnar. ALLERGIES: None. FAMILY HISTORY: Hypertension. SOCIAL HISTORY: Does drink alcohol. Has been a smoker. REVIEW OF SYSTEMS: Negative. CARDIAC: Positive COPD with shortness of breath on exertion. He den ies GI distress. No skin issues. No neurologic issues. No psychiatric issues and vitals in the of fice were normal on his preop visit and review of systems as noted above. PHYSICAL EXAM: VITAL SIGNS: Stable. CHEST: Clear. HEART: Regular rate and rhythm. ABDOMEN: N ormal, no organomegaly, rebound or guarding. EXTREMITIES: Lower extremities are normal. His urinalysis showed hematuria and pyuria and negative nitrites. He had had a residual urine of 33 2 mL. At the present time, we will attempt to debulk his tumor endoscopically, and the indications, compli cations and risks have been discussed. Written and verbal consent was obtained. He is admitted for the above procedure. /[id number]/MODL
[~2016-12-25 08:46] MED LIST: LIDOCAINE 2% JELLY 20 ML (UROJECT) ONE
[2016-12-25] MEDS ORDERED: fentaNYL 100 MCG/2 ML INJ ONE ×2 (09:04→11:25)
[2016-12-25] MEDS ORDERED: CEFAZOLIN 2 GM/DEXTROSE/100 ML BAG IV ONE (09:18)
[2016-12-25] MEDS ORDERED: LR 1,000 ML IV ONE (09:24)
[2016-12-25] MEDS ORDERED: D5W LR 1,000 ML IV ONE (09:30)
[2016-12-25] MEDS ORDERED: PROPOFOL 200 MG/20 ML VIAL ONE (09:59)
[2016-12-25] MEDS ORDERED: TIOTROPIUM INHALER 18 MCG/DOSE 5 DOSE/MDI IH PRN (10:55)
[2016-12-25] MEDS ORDERED: OPIUM/BELLADONNA ALKALO SUPP PR PRN (10:56)
[2016-12-25] MEDS ORDERED: D5W LR 1,000 ML IV SCH (11:00)
--- NOTE | 2016-12-25 11:03 | POSTOPPROG ---
Post Op Note Date of Operation: 12/25/16 Surgeon: Joe Alvarenga Anesthesiologist: carey Anesthesia: GET(General Endotracheal) Pre-op Diagnosis: retention, bladder cancer, prostate cancer Post-op Diagnosis: same Indication: retention Procedure: TURP, TURBT Findings: Dictated Inf/Abcess present in the surg proc area at time of surgery?: No EBL: Minimal Complications: none Drains: Other (tomlinson) Specimen(s): sent---dictated op note
--- NOTE | 2016-12-25 11:46 | GOP ---
[f rep st] OPERATIVE REPORT DATE OF OPERATION: 12/25/16 SURGEON: Joe Alvarenga MD ANESTHESIOLOGIST: Ad Browne MD, provided general anesthesia. PREOPERATIVE DIAGNOSIS: Bladder cancer, urinary retention, and prostate cancer. POSTOPERATIVE DIAGNOSIS: Bladder cancer, urinary retention, and prostate cancer. PROCEDURE PERFORMED: Transurethral resection of prostate for urinary retention/ obstruction, and transurethral resection of small bladder tumor. FINDINGS: DESCRIPTION OF PROCEDURE: After undergoing general anesthesia, prepped and draped in normal sterile fashion in dorsal lithotomy position, he had a normal urethra. Prostate was obstructing with an elevated bladder neck and erythema, and then the bladder had +4 trabeculation. He had some small tumor lesions on the left side of the bladder that were resected, and then because of the obstruction/retention and the diverticula of the bladder, I did the TUR, and this intravesical lobe elevated bladder neck, and so that was resected from the bladder neck down lateral to the verumontanum on both sides, and hemostasis with bipolar electrocautery. At the end of the procedure, I did not elect to do lateral lobar resection, trying to minimize it, because of his prior history of radiation, and did not want to render him incontinent if possible. I Ellik' d his bladder free of all chips and clots, sent the 2 separate specimen packets off, and then his bladder was filled with fluid, and coude maneuver revealed an excellent flow of clear urine. Uro-Jet placed in the urethra and the 3-way catheter placed with mild traction. He will be admitted for postop care. To be discharged tomorrow. Pathology sent, and he tolerated the procedure well. At the present time, there is no appearance of unresectable lesion that would lead to his early demise. Copy requested to: Steven Chandra MD /[id number]/MODL MTDD
[2016-12-25] MEDS: HYDROCODONE/APAP 5/325 TAB PO PRN ×2 (13:19→20:21)
[2016-12-25] MEDS: PSYLLIUM METAMUCIL 1 PKT PO PRN (18:14)
[2016-12-25] MEDS: OXYBUTYNIN CHLORIDE 5 MG TAB PO SCH (20:22)
[2016-12-26] MEDS: HYDROCODONE/APAP 5/325 TAB PO PRN ×2 (00:50→05:36)
[2016-12-26] MEDS: PSYLLIUM METAMUCIL 1 PKT PO PRN ×2 (05:35→10:43)
--- NOTE | 2016-12-26 07:45 | SOAPPROG ---
SOAP Progress Note Assessment/Plan: Assessment: Urinary retention Acute POD#1 doing well post TURP, path pending Bladder mass Acute Path pending Plan: dc tomlinson and to home 12/26/16 07:43 Subjective: doing well Objective: Vital Signs Temp Pulse Resp BP Pulse Ox 36.4 C 58 L 17 116/77 91 L 12/26/16 05:05 12/26/16 05:05 12/26/16 05:05 12/26/16 05:05 12/26/16 05:05 12/25/16 12/26/16 12/27/16 05:59 05:59 05:59 Intake Total 1840 Output Total 6200 Balance -4360 Physical Exam - Physical Exam General Appearance: alert Neck: full range of motion Respiratory: No respiratory distress Abdomen: soft Neuro/Psych: alert, oriented x 3 ICD10 Worksheet Patient Problems: Problems Problem Status Onset Adenocarcinoma of prostate Acute Urinary retention Acute Bladder mass Acute Hematuria Acute
[2016-12-26 08:24] VITALS: RESP 16; TEMP 97.7
[2016-12-26] MEDS: OXYBUTYNIN CHLORIDE 5 MG TAB PO SCH (08:43)
[2016-12-26] MEDS ORDERED: NON-FORMULARY NEW DRUG (Esomeprazole Mag Trihydrate [Nexium] 40 MG) PO SCH (09:00)
[2016-12-26] MEDS ORDERED: PRESERVISION AREDS2 FORMULA EYE VIT 1 EACH PO SCH (09:00)
[2016-12-26] MEDS ORDERED: Herbals/Supplements -Info Only PO SCH (09:00)
[2016-12-26] MEDS ORDERED: MULTIVITAMINS 1 EACH TAB PO SCH (09:00)
[2016-12-26] MEDS ORDERED: ATORVASTATIN CALCIUM 40 MG TAB PO SCH (09:00)
[2016-12-26] MEDS ORDERED: ACETAMINOPHEN 500 MG TAB PO SCH (09:00)
[2016-12-26] MEDS ORDERED: PANTOPRAZOLE SODIUM 40 MG TAB PO SCH (09:00)
[2016-12-26 10:58] VITALS: BP 110/60; PULSE 63; O2SAT 91
== END 2016-12-26 12:20 | disposition home or self-care (01) ==
LOC: F3N 08:46 → F1N 12:52
PROVIDERS: ADMIT Specialist; ATTEND Specialist
DX: C67.9 Malignant neoplasm of bladder, unspecified (principal); C61 Malignant neoplasm of prostate; R33.9 Retention of urine, unspecified; J44.9 Chronic obstructive pulmonary disease, unspecified; F17.290 Nicotine dependence, other tobacco product, uncomplicated; E78.5 Hyperlipidemia, unspecified
CPT/HCPCS: 52234; 52601; J0690; J2704; J3010